=== PATIENT | male | born 1975 | race Caucasian/White ===

== ENCOUNTER → 2024-06-05 11:22 | Outpatient (REF) | payer OTHER, SELFPAY | LOC: HWRAD 11:22 | PROVIDERS: ATTENDING PHYSICIAN Otolaryngology Facial Plastic Surgery; FAMILY PHYSICIAN Family Medicine | DX: J32.0 Chronic maxillary sinusitis (principal); J33.0 Polyp of nasal cavity; J34.3 Hypertrophy of nasal turbinates | CPT/HCPCS: 70486 ==